=== PATIENT | female | born 1960 | race Caucasian/White ===

== ENCOUNTER 2020-08-26 10:03 | Day surgery (SDC) | payer BC ==
[2020-08-25 11:27] VITALS: BMI 22.4
[2020-08-26] MEDS ORDERED: LIDOCAINE HCL/PF 2% SDV 5ML VIAL ONE (10:42)
[2020-08-26] MEDS ORDERED: PROPOFOL 20 ML ONE ×3 (10:42)
[2020-08-26 11:53] VITALS: PULSE 82
[2020-08-26 12:25] VITALS: BP 118/65; TEMP 98
== END 2020-08-26 12:27 | disposition home or self-care (01) ==
LOC: FASU-ENDO 10:03
PROVIDERS: ATTEND Internal Medicine Gastroenterology
PROC: 0DBL8ZX Excision of Transverse Colon, Via Natural or Artificial Opening Endoscopic, Diagnostic (ICD-10-PCS; 2020-08-26)
PROC: 0DBP8ZX Excision of Rectum, Via Natural or Artificial Opening Endoscopic, Diagnostic (ICD-10-PCS; 2020-08-26)
PROC: 0DBM8ZX Excision of Descending Colon, Via Natural or Artificial Opening Endoscopic, Diagnostic (ICD-10-PCS; 2020-08-26)
PROC: 0DBK8ZX Excision of Ascending Colon, Via Natural or Artificial Opening Endoscopic, Diagnostic (ICD-10-PCS; principal; 2020-08-26 11:09)
DX: K57.30 Diverticulosis of large intestine without perforation or abscess without bleeding (principal); K63.89 Other specified diseases of intestine; K64.1 Second degree hemorrhoids; R19.7 Diarrhea, unspecified; R19.4 Change in bowel habit
CPT/HCPCS: 88305-TC; 88342-TC

== ENCOUNTER 2022-06-19 08:15 | Day surgery (SDC) | payer BC ==
[2022-06-18 12:19] VITALS: BMI 23.1
[2022-06-19 08:38] VITALS: TEMP 97.8
[2022-06-19 10:39] VITALS: BP 86/60; PULSE 52; RESP 16
== END 2022-06-19 10:20 | disposition home or self-care (01) ==
LOC: FASU-ENDO 08:15
PROVIDERS: ATTEND Internal Medicine Gastroenterology
PROC: 0DBL8ZX Excision of Transverse Colon, Via Natural or Artificial Opening Endoscopic, Diagnostic (ICD-10-PCS; 2022-06-19)
PROC: 0DBM8ZX Excision of Descending Colon, Via Natural or Artificial Opening Endoscopic, Diagnostic (ICD-10-PCS; 2022-06-19)
PROC: 0DBK8ZX Excision of Ascending Colon, Via Natural or Artificial Opening Endoscopic, Diagnostic (ICD-10-PCS; principal; 2022-06-19 09:21)
DX: R19.4 Change in bowel habit (principal); R19.7 Diarrhea, unspecified; K64.2 Third degree hemorrhoids; K57.30 Diverticulosis of large intestine without perforation or abscess without bleeding
CPT/HCPCS: 88305-TC

== ENCOUNTER 2024-05-19 04:50 | Day surgery (SDC) | payer OTHER, BC ==
[2024-05-15 16:30] VITALS: BMI 22.1
[2024-05-19 08:04] VITALS: PULSE 60; TEMP 97.9
[2024-05-19 09:46] VITALS: RESP 16
[2024-05-19 10:09] VITALS: BP 107/70
== END 2024-05-19 09:50 | disposition home or self-care (01) ==
LOC: JASU-ENDO 04:50
PROVIDERS: ATTEND Internal Medicine Gastroenterology
PROC: 0DJD8ZZ Inspection of Lower Intestinal Tract, Via Natural or Artificial Opening Endoscopic (ICD-10-PCS; principal; 2024-05-19 09:15)
DX: Z12.11 Encounter for screening for malignant neoplasm of colon (principal); K64.8 Other hemorrhoids